=== PATIENT | female | born 1955 | race Caucasian/White ===

== ENCOUNTER 2025-01-06 05:25 | Observation (INO) ==
--- NOTE | 2024-12-11 10:07 | PAT Medication Instructions ---
Medication Instructions Date of Service December 11, 2024 Home Medications amlodipine 5 mg tablet 5 mg PO QAM cholecalciferol (vitamin D3) 25 mcg (1,000 unit) capsule (Vitamin D3) 25 mcg PO QAM famotidine 40 mg tablet 40 mg PO BID ferrous sulfate 325 mg (65 mg iron) tablet 325 - 650 mg PO BID insulin glargine 100 unit/mL (3 mL) subcutaneous pen (Lantus Solostar U-100 Insulin) 13 unit subcut QAM levothyroxine 88 mcg tablet 88 mcg PO QAM metformin 500 mg tablet 1,000 mg PO BID pantoprazole 40 mg tablet,delayed release 40 mg PO BID rosuvastatin 5 mg tablet 5 mg PO HS semaglutide 0.25 mg or 0.5 mg (2 mg/3 mL) subcutaneous pen injector (Ozempic) 0.5 mg subcut WK sertraline 100 mg tablet 100 mg PO QAM DO NOT take the morning of surgery cholecalciferol (vitamin D3) 25 mcg (1,000 unit) capsule (Vitamin D3) 25 mcg PO QAM ferrous sulfate 325 mg (65 mg iron) tablet 325 - 650 mg PO BID metformin 500 mg tablet 1,000 mg PO BID Take morning of surgery With a small sip of water, OTHERWISE NOTHING TO EAT OR DRINK AFTER MIDNIGHT: amlodipine 5 mg tablet 5 mg PO QAM famotidine 40 mg tablet 40 mg PO BID levothyroxine 88 mcg tablet 88 mcg PO QAM pantoprazole 40 mg tablet,delayed release 40 mg PO BID sertraline 100 mg tablet 100 mg PO QAM Take evening before surgery famotidine 40 mg tablet 40 mg PO BID ferrous sulfate 325 mg (65 mg iron) tablet 325 - 650 mg PO BID metformin 500 mg tablet 1,000 mg PO BID pantoprazole 40 mg tablet,delayed release 40 mg PO BID rosuvastatin 5 mg tablet 5 mg PO HS STOP 7 days prior to surgery semaglutide 0.25 mg or 0.5 mg (2 mg/3 mL) subcutaneous pen injector (Ozempic) 0.5 mg subcut WK Insulin Dependent Diabetic Patients * Test your blood sugar the morning of surgery * If Blood Sugar is GREATER THAN 150, take HALF of your regular dose of: insulin glargine 100 unit/mL (3 mL) subcutaneous pen (Lantus Solostar U-100 Insulin) * If Blood Sugar is LESS THAN 150, DO NOT TAKE ANY: insulin glargine 100 unit/mL (3 mL) subcutaneous pen (Lantus Solostar U-100 Insulin) Other Notes If you have any questions please call us at [phone] or [phone] or [phone] or [phone]
--- NOTE | 2024-12-17 12:16 | Anesthesiology Consultation ---
Date of Service December 17, 2024 Assessment & Plan (1) Encounter for pre-operative examination: - Check BSG DOS - Infectious disease screening: Per assessment on 12/17/24- No known recent infectious disease contacts or current infectious disease symptoms. - Outpatient joint assessment: Pt currently scheduled for inpatient pathway. If surgeon requests review for outpatient joint pathway, patient is an acceptable candidate for outpatient joint program from anesthesia standpoint pending surgeon's office assessment that patient is motivated, has good support and completes [facility] Day Joint Program preop requirements. - GLP-1 medication instructions: Patient informed by PAT to stop 7 days prior to surgery- voiced understanding. DOS 01/06. Advised last dose to be 12/26. - Cardiology note 12/09/24: "Ok to clear at low cardiac risk for low risk procedure" - Acceptable risk for surgery pending surgeon ordered PCP preop evaluation (Dr. Benny Allen, appt 12/21). Chart Review Chart Review: Patient seen in Pre Admission Testing Teaching & Discussion Pre-Anesthesia Teaching/Discussion Notes: Instructed NPO after midnight before surgery,except medications with 15 cc of water. Medication instructions provided according to the PAT guidelines. History Surgery Operation Date: 01/06/25 07:00 Proposed Procedures p Left Total Knee Arthroplasty - Wolf Avendaño MD Height/Weight Height: 4 ft 10 in Weight: 82.7 kg Allergies Allergy/AdvReac Type Severity Reaction Status Date / Time No Known Allergies Allergy Verified 12/11/24 07:48 Medications Home Medications Medication Instructions Recorded Confirmed Last Taken amlodipine 5 mg tablet 5 mg PO QAM 12/11/24 12/11/24 Unknown cholecalciferol (vitamin D3) 25 25 mcg PO QAM 12/11/24 12/11/24 Unknown mcg (1,000 unit) capsule (Vitamin D3) famotidine 40 mg tablet 40 mg PO BID 12/11/24 12/11/24 Unknown ferrous sulfate 325 mg (65 mg 325 - 650 mg PO BID 12/11/24 12/11/24 Unknown iron) tablet insulin glargine 100 unit/mL (3 13 unit subcut QAM 12/11/24 12/11/24 Unknown mL) subcutaneous pen (Lantus Solostar U-100 Insulin) levothyroxine 88 mcg tablet 88 mcg PO QAM 12/11/24 12/11/24 Unknown metformin 500 mg tablet 1,000 mg PO BID 12/11/24 12/11/24 Unknown pantoprazole 40 mg tablet,delayed 40 mg PO BID 12/11/24 12/11/24 Unknown release rosuvastatin 5 mg tablet 5 mg PO HS 12/11/24 12/11/24 Unknown semaglutide 0.25 mg or 0.5 mg (2 0.5 mg subcut WK 12/11/24 12/11/24 12/05/24 mg/3 mL) subcutaneous pen injector (Ozempic) sertraline 100 mg tablet 100 mg PO QAM 12/11/24 12/11/24 Unknown Past Medical History Medical History Acid reflux Anemia Oral only Diabetes mellitus, type [address] Berna Leon; [facility] Endocrinology History of Lyme disease s/p abx treatment completion (~3+ years ago) Hypertension Hypothyroidism Migraines Exercise / Class Metabolic Activity II 4-5 Yardwork/Stairs/Walk up hill (one FS: No CP, no SOB) Past Surgical History Surgical History Adverse effect of anesthesia Migraine with right knee arthroscopy - pt stated she told anesthesia team before thyroidectomy and they gave medicine in IV to keep this from happening Slow to wake with thyroidectomy History of arthroscopy of right knee Meniscus History of thyroidectomy, total History of tooth extraction PONV (postoperative nausea and vomiting) Past Anesthesia History No Family Hx of Anesthesia Complications and Other (Slow to wake with thyroidectomy) History of PONV History of PONV and Hx of Motion Sickness Social History Smoking Status: Never smoker Do You Dip or Chew Tobacco: No Hx Alcohol Use: No Hx Substance Use: No substance use type: does not use Review of Systems Patient denies chest pain, shortness of breath, dyspnea on exertion, fever, chills, cough, wheezing, palpitations. Physical Exam Vital Signs BP 112/77 P 73 TEMP 97.9 SP02 96%RA RESP 18 Physical Full cervical extension range of motion. Full TMJ range of motion. TMD > 3.5 finger breaths Mallampati Score II Dentition: + missing sides/molars Lungs: clear throughout to auscultation Cardiac: regular rate and rhythm, no murmurs noted Spine: normal Carotid arteries: negative bruit Extremities: no LE edema Lab Results Anesthesia Preop Results Results Anesthesia Widget: WBC 7.27 K/ul (4.8-10.8) 12/17/24 Hgb 13.0 g/dl (12.0-16.0) 12/17/24 Hct 39.7 % (37.0-47.0) 12/17/24 Plt 142 K/uL (130-400) 12/17/24 Na 140 mmol/L (136-145) 12/17/24 K 4.3 mmol/L (3.5-5.1) 12/17/24 Cl 105 mmol/L (98-107) 12/17/24 CO2 27 mmol/L (21-32) 12/17/24 BUN 22 mg/dl (6-23) 12/17/24 Creat 1.20 mg/dl (0.6-1.2) 12/17/24 Glucose Level 106 mg/dl (70-99(Fasting)) H 12/17/24 PT 10.4 Seconds (9.0-12.0) 12/17/24 PTT 27 Seconds (21-31) 12/17/24 INR 1.0 (0.9-1.1) 12/17/24 HA1c 5.8 % (4.5-5.6) H 12/17/24 Urine Color Yellow 12/17/24 Urine Appearance Clear (Clear) 12/17/24 Urine pH 5.0 (4.5-7.5) 12/17/24 Urine Specific Start 1.028 (1.000-1.030) 12/17/24 Urine Protein Negative (Negative) 12/17/24 Urine Glucose (UA) Negative (Negative) 12/17/24 Urine Ketones Trace (Negative) H 12/17/24 Urine Blood Negative (Negative) 12/17/24 Urine Nitrite Negative (Negative) 12/17/24 Urine Bilirubin Negative (Negative) 12/17/24 Urine Urobilinogen Negative (Negative) 12/17/24 Urine Leukocyte Esterase Negative (Negative) 12/17/24 Blood Type O Positive 12/17/24 Antibody Screen NEGATIVE 12/17/24 Testing Electrocardiogram Date: 12/17/24 NSR at 69bpm. LAD. Possible anterior infarct, age undetermined. Patient denies CP or SOB with flight of stairs and no cardiopulmonary complaints at PAT visit 12/17/24. Chest X-Ray Date: 12/17/24 FINDINGS: Heart size and pulmonary vasculature are normal. No consolidation or pleural effusion. There is minimal scoliosis. IMPRESSION: No acute findings.
--- NOTE | 2025-01-06 05:27 | History & Physical Bridge Note ---
Date of Service January 06, 2025 History & Physical Bridge Note I have examined the patient, reviewed the History & Physical and in the interval since the performance of the History & Physical I have noted the following changes of clinical significance:consent and site verified.higher risk based on amount of disease and deformity/and high BMI.modifier 22. no changes noted
[2025-01-06] MEDS: LR 500ML BOLUS, THEN 15ML/HR IV SCH (05:55)
[2025-01-06] MEDS: LR 60ML/HR IV SCH (06:05)
[2025-01-06] MEDS ORDERED: MIDAZOLAM HCL 1 MG/ML 2ML VIAL ONE (06:18)
[2025-01-06] MEDS ORDERED: LIDOCAINE 2% 2 ML VIAL/AMP(20MG/ML) INFIL ONE (06:19)
[2025-01-06] MEDS ORDERED: PROPOFOL IV EMULSION 10 MG/ML 20 ML VIAL IV ONE (06:19)
[2025-01-06] MEDS ORDERED: ONDANSETRON INJ 2 MG/ML 2 ML VIAL ONE (06:19)
[2025-01-06] MEDS ORDERED: BUPIVACAINE 0.5 % 5 MG/1 ML PF 10ML VIAL ONE (06:32)
[2025-01-06] MEDS ORDERED: BUPIVACAINE 0.25% PF 30 ML VIAL ONE (06:32)
[2025-01-06] MEDS ORDERED: EPINEPHrine INJ 1 MG/ML AMP ONE (06:32)
[2025-01-06] MEDS ORDERED: DEXAMETHASONE SOD INJ 4 MG/ML VIAL ONE (06:32)
[2025-01-06] MEDS: TRANEXAMIC ACID 1,000 MG **IV Pre-op IV SCH (06:48)
[2025-01-06] MEDS ORDERED: PROMETHAZINE HCL 6.25 MG in SODIUM CHLORIDE 0.9% 50 ML IV PRN (06:58)
[2025-01-06] MEDS ORDERED: ATROPINE SULFATE 0.1 MG/ML 10ML SYR IV PRN (06:58)
[2025-01-06] MEDS ORDERED: ONDANSETRON INJ 2 MG/ML 2 ML VIAL IV PRN ×2 (06:58→11:33)
[2025-01-06] MEDS: ORTHO JOINT ANESTHETIC ONE (07:32)
[2025-01-06] MEDS: ROPIV 0.5% 246mg, Ketorolac 30mg, EPINEPHrine 0.5mg in NSS INFIL SCH (07:32)
--- NOTE | 2025-01-06 08:47 | Post Operative Brief Note ---
Immediate Post Op Note Date of Surgery January 06, 2025 Pre & Post Diagnosis Operation Date: 01/06/25 07:00 Pre-Op Diagnosis: Left Knee Osteoarthritis Post-Op Diagnosis: Left Knee Osteoarthritis I identified the patient and participated in the time-out.: Yes Procedure Operation Date: 01/06/25 07:00 Actual Procedures p Left Total Knee Arthroplasty, Cemented(Left) - Wolf Avendaño MD Surgeon Wolf Avendaño MD [facility] no resident or fellow available modifier 22 based on high BMI of 3 Estimated Blood Loss 75 Findings Consistent with Post-Op Diagnosis Severe osteoarthritis huge osteophytes and periarticular femur tibia patella preoperative range of motion -5-70 Fluids 1300 cc Complications None
--- NOTE | 2025-01-06 08:52 | Operative Report ---
Post Operative Report Pre & Post Diagnosis Operation Date: 01/06/25 07:00 Pre-Op Diagnosis: Left Knee Osteoarthritis Post-Op Diagnosis: Left Knee Osteoarthritis I identified the patient and participated in the time-out.: Yes Procedure Operation Date: 01/06/25 07:00 Actual Procedures p Left Total Knee Arthroplasty, Cemented(Left) - Wolf Avendaño MD Surgeon Wolf Avendaño MD Supervisor [facility] or fellow available modifier 22 based on high BMI of 3 Estimated Blood Loss 75 Findings Consistent with Post-Op Diagnosis Severe osteoarthritis huge osteophytes periarticular all 3 bones severe limited range of motion preoperatively -5 to 70 degrees high BMI modifier 22 Fluids 1300 cc Specimens Bone pathology Drains None Complications None Indications Severe pain marked stiffness failed conservative management Description of Procedure After the patient was identified site verified consent verified antibiotics confirmed to be given the left lower extremity was prepped and draped in routine fashion. The BMI is 38 justifying modified 22. This was utilized based on the size of the patient's the size of the osteophytes and stiffness of the knee and the need for for additional hands to do the procedure. Once the tourniquet was inflated after exsanguination of the limb with a rubber Esmarch bandage confirmed that the antibiotics and TXA were given prior tourniquet was inflated to 275 mmHg total of 55 minutes. Appropriate decision made based on the knee stiffness and patient size. Full-thickness flaps raised. Parapatellar arthrotomy performed. To [facility] pieces of osteoarticular bone were then removed there were pedunculated these were coming from the extensor mechanism. The osteophytes on the patella were used requiring resection prior to allowing eversion of the patella. Medial subperiosteal section was carried out patella was then able to be subluxated. There was no ACL there was grade 4 disease on the entire femur entire lateral tibia and grade 3+ disease on the medial tibia. There were huge osteophytes all along the margin of the femur and is required the osteotome to resect the notch was obliterated this required bone resection. The PCL was then released. Distal femur was then entered distal femur cut 10 mm proximal tibia cut 4 mm the extension gap was then noted to be excellent. The femur was sized to a size 5 the tibia to a size 5. The cutting block was then applied to the distal femur and the anterior posterior condylar and chamfer cuts were made flexion gap was then checked it was good. Box cut was then made a size 5 fit well. The lug holes were then made. Tibia was broached reamed to a size 5 and 12 mm spacer was noted to give us the best mid range and full flexion and stability. This did not illuminate any extension. Should be mentioned the huge osteophytes were needed to be removed from the posterior aspect of the box when the knee was in flexion this allowed excellent balancing of her soft tissues. Once again justifying a modifier 22. The patella was then everted and resected leaving 15 mm in the 38 button was appropriate. Orthopedics was then injected all around the knee. All trial elements were removed the knee was soaked in Irrisept with Pulsavac and then the permanent cemented in position femur tibia and patella in that order 12 minutes of tourniquet deflated minor bleeding points controlled electrocautery. Bone wax used around the bone margins. At 14 minutes knee was flexed no cement removal required knee was irrigated with Pulsavac Irrisept and the permanent liner seated the knee reduced and closed at 40 degrees of flexion in multiple layers based on her size with #2 Vicryl 2-0 Vicryl and stainless steel clips appropriate dressing applied the patient transferred recovery in satisfactory condition having tolerated the procedure well. Her sister was contacted. Summary of implants size 5 ATT UNE posterior stabilized left femur size 5 tibia rotating platform both cemented patella 38 dome medialized cemented Poly size 512 mm rotating platform posterior stabilized. EBL 75 cc crystalloid 1300 cc DVT PE prophylaxis start tomorrow all pathology pending x-rays pending. I attest to the content of the Intraoperative Record and any orders documented therein. Any exceptions are noted below.
--- NOTE | 2025-01-06 08:53 | Discharge Summary ---
Date of Service January 07, 2025 Admission HPI Per Admitting Provider Severe osteoarthritis with flexion valgus deformity left knee Principal Diagnosis Status post cemented left total knee replacement Discharge Data Allergies Allergy/AdvReac Type Severity Reaction Status Date / Time doxycycline AdvReac Intermediate unstable Verified 01/06/25 05:39 gait Vaccinations None Consultations None Procedures Performed Operation Date: 01/06/25 07:00 Actual Procedures p Left Total Knee Arthroplasty, Cemented(Left) - Wolf Avendaño MD Ordered Studies 01/06/25 05:00 US - OR guided needle placemen Routine Hospital Course (1) Status post left knee replacement: Total Time Total Time Spent Total Time Spent (In Minutes): 10 Discharge Plan Discharge Items Patient Disposition: Home - Home Health Services Reason For Visit: Left Knee Osteoarthritis Discharge Diagnosis: Status post cemented left total knee replacement Condition on Discharge: Good Activity: Per Instructions section Lifting: Wait until after follow-up appointment Bathing: Keep incision dry Sexual Activity: Wait until after follow-up appointment Exercise/Sports: Wait until after follow-up appointment Driving/Machine Use: No driving until cleared by Orthopedics Weightbearing: Full weightbearing Non-emergency contact: Surgeon Call non-emergency contact if: you have any medication questions, your temperature is above 101, your wound has increased redness, your wound has increased drainage and your wound pain has increased Follow-up/Referrals: Kofi Griffith PA [Physician [employer]] - 01/21/25 PCP,NO [Primary Care Provider] - Diet: Carb Count or DM1 Addtl Attending Provider Instructions: New Medicine: * You will likely be taking one or more of these medications: 1. Percocet - Take, as directed, when you need it, every four to six hours to control your pain. 2. Iron Sulfate - Take 1x each day for the month after surgery to help you replace the blood lost during surgery. 3. Eliquis - Thins your blood to lessen the chance of forming a blood clot. * The most common side effects of pain medicine and iron are nausea and constipation. If nausea or constipation is too much of a problem or if you have any questions about your new medicines or doses, call [facility] at . We will try to help you manage these issues. "VERY IMPORTANT TO READ AND REVIEW" Blood Clots and Blood Thinning Medicine: * You are given Eliquis during the immediate post-operative period to lessen the risk of blood clots forming in your legs and/or lungs. It is usually given for six weeks after surgery. Pain: * The immediate post-operative period after knee replacement surgery is often quite painful. * You are given a prescription for pain medicine. You should take it, as directed, when you need it, especially before physical therapy and before going to bed. Pain that interferes with sleep is very common and can last several months. * You will likely need pain medicine for the first four to six weeks. It will not stop all of the pain. The pain will lessen and as you feel better, you may change to milder pain medicine such as Tylenol. * The most common side effects of pain medicine are nausea and constipation, so don't take more than you need. Physical Therapy: * You will have physical therapy two or three times each week for four to six weeks after your surgery in order to regain your knee range of motion and to retrain your knee to work properly. * It is just as important to make sure you are getting your knee perfectly straight as it is to regain your knee bend. * Taking a pain pill an hour before therapy can help you have a more productive and comfortable therapy session if needed. Home Exercise: * You were shown a series of exercises (heel props, heel slides, etc.) in the hospital. Do these exercises three to four times each day including the exercises you were shown in physical therapy. Walking: * Get up and walk several times each day. For the first four weeks, try not to stand or walk for more than one hour at a time. If you do stand or walk for more than one hour, you will not hurt anything, but your knee and leg will likely swell. * As you feel comfortable, you may change from the walker or crutches to a cane and then to independent walking. SELF CARE INSTRUCTIONS AFTER TOTAL KNEE REPLACEMENT A. You may need to continue a physical therapy program after discharge from the hospital. There are several options available to you. Your doctor will assist you in selecting the best one for you. 1. An out-patient facility 2 to 3 times a week for therapy or home therapy. 2. Continue working on all exercises taught to you in the hospital. Your goals should be to increase bending of your knee to 90 degrees and beyond and to fully straighten your knee. B. You may progress at your own pace from walking with a walker or crutches to a cane; then to no assistive devices. C. Make walking a part of your daily routine. Be up as much as comfortable with rest periods throughout the day. Rest with leg elevation is very important. Use the ice wrap frequently for the first 3-4 weeks. D. There are no restrictions on activities. You may ride in a car, shop, participate in high density press operator and all social activities. E. Wear the long elastic stockings (MARIAH hose) 20 hours a day for six weeks after surgery. They can be removed several times a day for laundering and for a shower. F. Do not place a pillow behind your knee when resting. A pillow at your ankle is okay. G. You may return to previous diet. VERY IMPORTANT TO READ AND REVIEW A. Take Eliquis (blood thinning medication) as directed by your doctor. B. There are a few signs you need to watch for after you are home. Call [facility] if you notice any of the followin. Increased severe knee pain. Some pain is expected especially when you exercise. 2. Increased swelling in your leg or knee; pain or swelling of the calf muscle in either lower leg. 3. Any fluid drainage from the incision. 4. Shortness of breath or chest pain. C. Please call [facility] at if you have any concerns or questions about your operation or recovery. The doctor or his nurse will return your call promptly. D. You must take antibiotics before dental work, bladder, bowel or other surgery. Call the office to obtain a prescription at least 2 days prior to your appointment. * CALL IF INCREASED PAIN, REDNESS, DRAINAGE OR FEVER GREATER THAT 101. * Sutures should be removed 12-14 days after surgery unless you are on chronic steroids, then it will be 14-18 days after surgery. Call your doctor if: * Temperature above 101 degrees F. * Pain not relieved by pain medicine ordered. * Increased drainage or redness from incision. * Notify your doctor with any questions or concerns. MEDICATIONS: * Please take your prescriptions as instructed at your pre-op appointment and/or see medication discharge instructions listed above. * If concerns develop, call your physician's office at . SPECIAL CARE INSTRUCTIONS: * Ice/Elevate as instructed. * Keep dressing clean, dry, intact. * Your surgical extremity may be discolored due to prepping agents used on the skin. A bluish-green tint is a normal variant and should not cause alarm. Call your doctor at [phone] if: * Temperature above 101 degrees * Pain not relieved by pain medicine ordered * There is increased drainage or redness from any incision * You have any unanswered questions, problems or concerns. FOLLOW UP VISIT: * If not already scheduled, please call the office at to schedule a follow-up appointment. Start your Eliquis tonight. Take it 2x per day until finished to prevent blood clots Use your knee immobilizer when out of bed today and Saturday. It can be discontinu ed entirely on Saturday morning. Use your walker for ambulation ice and elevate the knee frequently to reduce pain/swelling [facility] will contact you before their arrival Pending Studies at Discharge: Yes Studies:: bone pathology Stand-Alone Forms: My [facility], Smoking Cessation Medications and DC Order Prescriptions: New oxycodone-acetaminophen [Percocet] 5-325 mg tablet 2 tab PO Q6H PRN (Reason: pain) Qty: 20 0RF Rx Instructions: initial script Eliquis 2.5 mg tablet 2.5 mg PO BID Qty: 80 0RF No Action metformin 500 mg Tablet 1,000 mg PO BID famotidine 40 mg Tablet 40 mg PO BID sertraline 100 mg Tablet 100 mg PO QAM amlodipine 5 mg Tablet 5 mg PO QAM levothyroxine 88 mcg Tablet 88 mcg PO QAM pantoprazole 40 mg Tablet,Delayed Release (Dr/Ec) 40 mg PO BID ferrous sulfate 325 mg (65 mg iron) Tablet 325 - 650 mg PO BID Rx Instructions: 1 Tab QAM - 2 Tab QPM cholecalciferol (vitamin D3) [Vitamin D3] 25 mcg (1,000 unit) Capsule 25 mcg PO QAM rosuvastatin 5 mg Tablet 5 mg PO HS insulin glargine [Lantus Solostar U-100 Insulin] 100 unit/mL (3 mL) Insulin Pen 13 unit SUBCUT QAM Ozempic 0.25 mg or 0.5 mg (2 mg/3 mL) Pen Injector 0.5 mg SUBCUT WK Rx Instructions: Saturday Admission Data Admit Date/Time: 01/06/25 09:10 Attending Provider: Wolf Avendaño Admit Provider: Wolf Avendaño Primary Care Provider: PCP,NO Other Providers: [facility]
--- NOTE | 2025-01-06 08:54 | Orthopedic Progress Note ---
Date of Service January 06, 2025 Orthopedic Progress Note Patient underwent elective left total knee replacement tolerated well denies chest pain shortness of breath fever chills nausea vomiting headache. Wound dressing clean dry and intact neurovascular check limited by spinal x-ray pending family contacted. EBL 75 cc or less crystalloid 1300 cc. Initiate anticoagulation tomorrow.
--- NOTE | 2025-01-06 09:01 | Operative Report ---
Post Operative Report Pre & Post Diagnosis Operation Date: 01/06/25 07:00 Pre-Op Diagnosis: Left Knee Osteoarthritis Post-Op Diagnosis: Left Knee Osteoarthritis I identified the patient and participated in the time-out.: Yes Procedure Operation Date: 01/06/25 07:00 Actual Procedures p Left Total Knee Arthroplasty, Cemented(Left) - Wolf Avendaño MD Surgeon CINDI Avendaño MD Personal Driver Luis De Luna resident or fellow available modifier 22 based on high BMI of Estimated Blood Loss 75 Findings Consistent with Post-Op Diagnosis see operative report Specimens see operative report Drains none Complications none Disposition Accompanied Patient To Recovery: Yes Indications This 69 year female presented to the office for complaints of persisting left knee pain. She had tried conservative care measures without improvement. She elected to proceed with surgical intervention after being educated about potential risks and outcomes. Preoperative imaging was obtained. Description of Procedure The patient was administered a spinal anesthetic and then taken to the operating room where she was given sedation. She was prepped and draped in the usual sterile fashion. Please see Dr. Avendaño's operative report for specifics of the procedure. I was present for the entire case for initial patient positioning through final wound closure. Assistance was provided in tissue retraction, hemostasis, trial implant placement, final implant placement, and final wound closure. The patient was taken to the recovery room in satisfactory condition. I attest to the content of the Intraoperative Record and any orders documented therein. Any exceptions are noted below.
--- NOTE | 2025-01-06 09:18 | Anesthesiology Progress Note ---
Date of Service January 06, 2025 Anesthesia Post Procedure Vital Signs Vital Signs: Temp Pulse Resp BP Pulse Ox O2 Del Method O2 Flow Rate 01/06/25 09:05 65 17 122/62 100 Oxymask 7 01/06/25 08:58 36.1 C L 69 15 109/58 L 99 Oxymask 7 01/06/25 05:42 36.8 C 71 20 147/76 H 96 Room Air Pain Intensity Left Knee: Pain Intensity: 8 Transfer of Care Handoff Completed per policy Notes Mental Status: alert / awake / arousable Patient Amnestic to Procedure: Yes Nausea / Vomiting: adequately controlled Pain: adequately controlled Airway Patency, RR, SpO2: stable & adequate BP & HR: stable & adequate Hydration State: stable & adequate Neuraxial Anesthesia: was administered and sensory block is resolving Anesthetic Complications: no major complications apparent and Pt Satisfied with anesthetic care
--- NOTE | 2025-01-06 09:29 | XRay Report ---
XR knee LT 1 or 2V routine CLINICAL HISTORY: S/P L TKA COMPARISON: None FINDINGS: Left knee prosthesis shows no hardware complication. There is expected soft tissue gas. Sk in dilcia are present anteriorly. IMPRESSION: Unremarkable postoperative exam. ACT 112: Negative or not required by law. Electronically signed by: Geovany Keen M.D. 01/06/2025 9:27 AM
--- NOTE | 2025-01-06 10:59 | Anesthesiology Progress Note ---
Date of Service January 06, 2025 Anesthesia Post Procedure Vital Signs Vital Signs: Temp Pulse Resp BP Pulse Ox O2 Del Method O2 Flow Rate 01/06/25 10:45 64 19 132/66 97 Room Air 01/06/25 10:35 59 L 16 120/63 98 Room Air 01/06/25 10:25 36.4 C L 65 18 123/59 L 99 Room Air 01/06/25 10:15 58 L 17 126/66 99 Room Air 01/06/25 10:05 55 L 16 133/65 98 Room Air 01/06/25 10:00 58 L 15 100/76 97 Room Air 01/06/25 09:55 62 19 126/64 99 Room Air 01/06/25 09:45 53 L 15 121/62 97 Room Air 01/06/25 09:35 67 20 126/64 97 Room Air 01/06/25 09:25 61 20 126/63 99 Room Air 01/06/25 09:15 60 16 125/63 100 Oxymask 2 01/06/25 09:05 65 17 122/62 100 Oxymask 7 01/06/25 08:58 36.1 C L 69 15 109/58 L 99 Oxymask 7 01/06/25 05:42 36.8 C 71 20 147/76 H 96 Room Air Pain Intensity Left Knee: Pain Intensity: 8 Transfer of Care Handoff Completed per policy Notes Mental Status: alert / awake / arousable Patient Amnestic to Procedure: Yes Nausea / Vomiting: adequately controlled Pain: adequately controlled Airway Patency, RR, SpO2: stable & adequate BP & HR: stable & adequate Hydration State: stable & adequate Neuraxial Anesthesia: was administered and sensory block is resolving Anesthetic Complications: no major complications apparent
[2025-01-06] MEDS ORDERED: ALUMINUM/MAGNESIUM SUSP 30 ML UDC PO PRN (11:33)
[2025-01-06] MEDS ORDERED: PHARMACY GLYCEMIC MGMT CONSULT PRN (11:33)
[2025-01-06] MEDS ORDERED: HYDROmorphone INJ 0.5 MG/0.5 ML SYR IV PRN (11:33)
[2025-01-06] MEDS ORDERED: diphenhydrAMINE 50 MG/ML VIAL IV PRN (11:33)
[2025-01-06] MEDS ORDERED: MAGNESIUM HYDROXIDE SUSP 30 ML UDC PO PRN (11:33)
[2025-01-06] MEDS ORDERED: METOCLOPRAMIDE HCL INJ 5 MG/ML 2 ML VIAL IV PRN (11:33)
[2025-01-06] MEDS ORDERED: NALOXONE HCL 0.4 MG/1 ML VIAL/CARP IV PRN (11:33)
[2025-01-06] MEDS: KETOROLAC TROMETHAMINE 15 MG/ML VIAL IV SCH (12:04)
[2025-01-06] MEDS: SODIUM CHLORIDE 0.9% 1,000 ML IV SCH (12:05)
[2025-01-06] MEDS ORDERED: DEXTROSE 50% 50 ML SYRINGE IV PRN (12:15)
[2025-01-06] MEDS ORDERED: GLUCAGON FOR INJ 1 MG VIAL SQ PRN (12:15)
[2025-01-06] MEDS ORDERED: CARBOHYDRATES FOR HYPOGLYCEMIA PO PRN (12:15)
[2025-01-06] MEDS ORDERED: GLUCOSE 10 TAB/TUBE PO PRN (12:15)
[2025-01-06] MEDS ORDERED: GLUCOSE 40% GEL 15 GM TUBE PO PRN (12:15)
[2025-01-06] MEDS: ACETAMINOPHEN 500 MG TAB PO SCH (14:43)
--- NOTE | 2025-01-06 15:03 | Pharmacy Report ---
Pharmacy Glycemic Short Note 2 - Date of Service January 06, 2025 - Glycemic Short BSG Results (Last 24 hours): 01/06/25 01/06/25 01/06/25 05:37 09:08 11:38 POC Glucose 86 96 128 H OUTPATIENT ANTIDIABETIC REGIMEN: * Lantus 13 unit SQ QAM * metformin 1000mg PO BID * Ozempic 0.5mg SQ weekly HbA1C: 5.8% on 12/17/24 ASSESSMENT: * Dariana is a 69 year old female who was admitted today for a left total knee arthroplasty (POD #0). Pharmacy was consulted for glycemic management postop. * Preop BSG was 96mg/dL and postop was 128mg/dL. She did receive 4mg iv dexamethasone preop. A weight based bolus insulin regimen with a stress of ~2 was started. A lantus scale (0, 5, or 10 units depending on BSG) was ordered for HS PLAN FOR INPATIENT GLYCEMIC CONTROL: * Hold outpatient diabetes medications * Basal insulin * Lantus scale (0,5, or 10 units depending on BSG) units SQ HS * Bolus insulin * NovoLog per scale ACHS or Q6hrs while NPO * Goal Range: Low 120 mg/dL - High 150 mg/dL * Correction Factor: 30 mg/dL/unit * Nutritional / Prandial insulin per carb ratio of 1 unit per 12 grams CHO consumed
[2025-01-06] MEDS: INSULIN ASPART PER UNIT CHARGE SC SCH (17:46)
[2025-01-06] MEDS: ASCORBIC ACID 500 MG TAB PO SCH (17:47)
[2025-01-06] MEDS: FERROUS GLUCONATE 324 MG TAB PO SCH (17:47)
--- NOTE | 2025-01-06 18:39 | Orthopedic Progress Note ---
Date of Service January 06, 2025 Assessment & Plan Admission and Anticipated Discharge Date Admission Date: January 06, 2025 Orthopedic Progress Note Doing well denies any chest pain shortness of breath fever chills nausea vomiting headache. Sitting up in the chair. Ambulates to the bathroom. Can do straight leg raise. Neurovascular check is normal. Assessment overall doing well continue care pathway prepare for discharge tomorrow she does well with PT OT.
[2025-01-06] MEDS: DOCUSATE SODIUM 100 MG CAP PO SCH (20:15)
[2025-01-06] MEDS: SENNA 8.6 MG TAB PO SCH (20:16)
[2025-01-06] MEDS: FAMOTIDINE 40 MG TABLET PO SCH (20:16)
[2025-01-06] MEDS: ROSUVASTATIN CALCIUM 5 MG TAB PO SCH (20:16)
[2025-01-06] MEDS: LANTUS PER UNIT CHARGE SC SCH (20:20)
[2025-01-07] MEDS: LEVOTHYROXINE SODIUM 88 MCG TABLET PO SCH (05:50)
[2025-01-07 06:59] LABS: Hematocrit (blood only) 28.7 % (37.0-47.0); Hemoglobin 9.2 g/dL (12.0-16.0); Mean Corpuscular Hemoglobin 24.7 pg (25.0-34.0); Mean Corpuscular Volume 77.2 fL (80.0-100.0); Platelet Count 115 K/uL (130-400); RDW Standard Deviation 42.0 fL (36.4-46.3); Red Blood Count 3.72 M/uL (4.20-5.40); White Blood Count 6.02 K/ul (4.8-10.8)
[2025-01-07 07:07] VITALS: BP 109/71; PULSE 68; RESP 17; TEMP 97.9; O2SAT 96
[2025-01-07 07:17] LABS: Anion Gap 8.0 (3-11); Blood Urea Nitrogen 24.0 mg/dl (6-23); Calcium 7.5 mg/dl (8.6-10.3); Carbon Dioxide 26.0 mmol/L (21-32); Chloride 107.0 mmol/L (98-107); Creatinine Clr Calc Pharmacy 35.5 ml/min; Glucose 146.0 mg/dl (70-99(Fasting)); Potassium 4.0 mmol/L (3.5-5.1); Sodium 141.0 mmol/L (136-145)
--- NOTE | 2025-01-07 07:53 | Orthopedic Progress Note ---
Date of Service January 07, 2025 Assessment & Plan Admission and Anticipated Discharge Date Admission Date: January 06, 2025 Orthopedic Progress Note Postop day #1 status post left total knee replacement. Patient at this point time feels well. She denies any chest pain shortness of breath fever chills nausea vomiting or headache. A little bit of a vagal episode last evening when she got up to the bathroom and feels good now. She did she eats and drinks well. Left leg dressing is clean and dry calves are nontender. Dressing is changed wound is clean and dry. Neurovascular check femoral sciatic nerve is normal. Dressing changed. AKA teds are cutting into her thigh she needs to be switched to BK teds. A.m. labs are good hematocrit stable at 28+. Assessment status post left total knee replacement. Of PT OT this morning and discharge later today if she passes. High probability. Initiate anticoagulation today. Discharge order placed.
[2025-01-07] MEDS: MULTIVITAMIN TAB PO SCH (08:10)
[2025-01-07] MEDS: SERTRALINE HCL 100 MG TABLET PO SCH (08:10)
[2025-01-07] MEDS: APIXABAN 2.5 MG TAB PO SCH (08:10)
[2025-01-07] MEDS: LANTUS PER UNIT CHARGE SC SCH (08:17)
[2025-01-07] MEDS ORDERED: LEVOTHYROXINE SODIUM 88 MCG TABLET PO SCH (09:00)
== END 2025-01-07 11:54 | disposition home health service (06) ==
LOC: ASU 05:25 → 3W 05:25